=== PATIENT | female | born 1980 | race Caucasian/White ===

== ENCOUNTER 2017-02-04 15:10 | Emergency (ER) | payer MEDICAID ==
--- NOTE | 2017-02-04 17:41 | Emergency Department Record ---
History of Present Illness - General Chief complaint: Lower Extremity Pain Stated complaint: STABING LEG PAIN Time Seen by Provider: 02/04/17 17:41 Source: Patient, RN notes reviewed Mode of Arrival: Ambulatory - History of Present Illness Initial comments: right leg varicose veins sore and aching and no edema of leg and she has had this pain for months and scheduled to have varicose vein surg but insurance would not pay for it, Onset/Timin -: Hour(s) Location: Right, Other History of Same: No Radiation: Distal Severity scale (1-10): 5 Quality: Stabbing Consistency: Intermittent Improves with: Nothing Worsens with: Nothing Associated Symptoms: Denies other symptoms - Related Data Home Medications Medication Instructions Recorded Confirmed Last Taken Cholecalciferol (Vitamin D3) 2,000 unit PO DAILY 02/04/17 02/04/17 Unknown [Vitamin D3] Fluoxetine HCl [Prozac] 20 mg PO DAILY 02/04/17 02/04/17 Unknown Ibuprofen [Ibuprofen] 800 mg PO ASDIR 02/04/17 02/04/17 Unknown Previous Rx's Medication Instructions Recorded Naproxen [Naprosyn] 500 mg PO Q12H #20 tab. 02/04/17 Allergies Allergy/AdvReac Type Severity Reaction Status Date / Time erythromycin base Allergy Severe DIFFICULTY Verified 02/04/17 16:43 BREATHING Penicillins Allergy Severe DIFFICULTY Verified 02/04/17 16:43 BREATHING Sulfa (Sulfonamide Allergy Severe DIFFICULTY Verified 02/04/17 16:43 Antibiotics) BREATHING Travel Screening - Travel/Exposure Within Last 30 Days Have you traveled within the last 30 days?: No Review of Systems Reviewed: No additional complaints except as noted below Constitutional: Reports: As per HPI. Denies: Chills, Fever, Malaise, Night sweats, Weakness, Weight change Eyes: Reports: As per HPI. Denies: Eye discharge, Eye pain, Photophobia, Vision change ENT: Reports: As per HPI. Denies: Congestion, Dental pain, Ear pain, Epistaxis , Hearing loss, Throat pain Respiratory: Reports: As per HPI. Denies: Cough, Dyspnea, Hemoptysis, Stridor, Wheezes Cardiovascular: Reports: As per HPI. Denies: Arrhythmia, Chest pain, Dyspnea on exertion, Edema, Murmurs, Orthopnea, Palpitations, Paroxysmal nocturnal dyspnea, Rheumatic Fever, Syncope Endocrine: Reports: As per HPI. Denies: Fatigue, Heat or cold intolerance, Polydipsia, Polyuria Gastrointestinal: Reports: As per HPI. Denies: Abdominal pain, Constipation, Diarrhea, Hematemesis, Hematochezia, Melena, Nausea, Vomiting Genitourinary: Reports: As per HPI. Denies: Abnormal menses, Discharge, Dyspareunia, Dysuria, Frequency, Hematuria, Incontinence, Retention, Urgency Musculoskeletal: Reports: As per HPI. Denies: Arthralgia, Back pain, Gout, Joint swelling, Myalgia, Neck pain Skin: Reports: As per HPI. Denies: Bruising, Change in color, Change in hair/ nails, Lesions, Pruritus, Rash Neurological: Reports: As per HPI. Denies: Abnormal gait, Confusion, Headache, Numbness, Paresthesias, Seizure, Tingling, Tremors, Vertigo, Weakness Psychiatric: Reports: As per HPI. Denies: Anxiety, Auditory hallucinations, Depression, Homicidal thoughts, Suicidal thoughts, Visual hallucinations Hematological/Lymphatic: Reports: As per HPI. Denies: Anemia, Blood Clots, Easy bleeding, Easy bruising, Swollen glands Past Medical History - SOCIAL HISTORY Smoking Status: Current every day smoker Alcohol Use: Occassional Drug Use: None - RESPIRATORY Hx Respiratory Disorders: No - CARDIOVASCULAR Hx Cardio Disorders: No - NEURO Hx Neuro Disorders: No - GI Hx GI Disorders: No - Hx Genitourinary Disorders: No - ENDOCRINE Hx Endocrine Disorders: No - MUSCULOSKELETAL Hx Musculoskeletal Disorders: No - PSYCH Hx Psych Problems: Yes Hx Anxiety: Yes Hx Depression: Yes - HEMATOLOGY/ONCOLOGY Hx Hematology/Oncology Disorders: No Family Medical History Any Significant Family History?: Yes Family Hx Comment (NOT TO BE USED IN PLACE OF ITEMS BELOW): Mother- blood clots. Grandmother- Thyroid Hx Cancer: Grandparents Hx Diabetes: Father Hx HTN: Father Physical Exam - General General Appearance: Alert, Oriented x3, Cooperative, No acute distress - Head Head exam: Normal inspection - Eye Eye exam: Normal appearance, PERRL Pupils: Normal accommodation - ENT ENT exam: Normal exam, Mucous membranes moist, Normal external ear exam, Normal orophraynx, TM's normal bilaterally Ear exam: Normal external inspection. negative: External canal tenderness Nasal Exam: Normal inspection. negative: Discharge, Sinus tenderness Mouth exam: Normal external inspection, Tongue normal Teeth exam: Normal inspection. negative: Dental caries Throat exam: Normal inspection. negative: Tonsillar erythema, Tonsillar exudate - Neck Neck exam: Normal inspection, Full ROM. negative: Tenderness - Respiratory Respiratory exam: Normal lung sounds bilaterally. negative: Respiratory distress - Cardiovascular Cardiovascular Exam: Regular rate, Normal rhythm, Normal heart sounds - GI/Abdominal GI/Abdominal exam: Soft, Normal bowel sounds. negative: Tenderness - Rectal Rectal exam: Deferred - exam: Deferred - Extremities Extremities exam: Normal inspection, Full ROM, Normal capillary refill. negative: Tenderness - Back Back exam: Reports: Normal inspection, Full ROM. Denies: Muscle spasm, Rash noted, Tenderness - Neurological Neurological exam: Alert, Normal gait, Oriented X3, Reflexes normal - Psychiatric Psychiatric exam: Normal affect, Normal mood - Skin Skin exam: Dry, Intact, Normal color, Warm Course Vital Signs 02/04/17 16:33 Temperature 98.0 F Pulse Rate 95 H Respiratory 18 Rate Blood Pressure 104/62 Pulse Ox 97 Disposition Clinical Impression: Varicose vein of leg, Phlebitis, superficial Upper respiratory infection Qualifiers: URI type: unspecified viral URI Qualified Code(s): J06.9 - Acute upper respiratory infection, unspecified; B97.89 - Other viral agents as the cause of diseases classified elsewhere Disposition: Home, Self-Care Condition: (1) Good Instructions: Varicose Veins (ED) Additional Instructions: follow up with family in 2 to 5 days stop motrin while taking naprosyn Prescriptions: Naproxen [Naprosyn] 500 mg PO Q12H #20 tab.dr Forms: Patient Portal Access Time of Disposition: 17:58
== END 2017-02-04 18:26 | disposition home or self-care (01) ==
LOC: ER 15:10
DX: I83.11 Varicose veins of right lower extremity with inflammation (principal); J06.9 Acute upper respiratory infection, unspecified
CPT/HCPCS: 99282

== ENCOUNTER 2018-09-16 11:03 | Emergency (ER) | payer MEDICAID ==
--- NOTE | 2018-09-16 11:25 | Emergency Department Record ---
History of Present Illness - General Chief Complaint: Numbness Stated Complaint: LEFT ARM NUMB, NAUSEA, WEAK Time Seen by Provider: 09/16/18 11:19 Source: Patient Mode of Arrival: Ambulatory Limitations: No limitations - History of Present Illness Initial Comments: The patient is here due to a complaint of L arm numbness that is intermittent for 3 days. She states the symptoms seem to come and go and last minutes to hours. There is no associated weakness or tingling to the arm. She also denies any visual changes, balance issues, trouble talking or swallowing or confusion. Presently the symptoms are gone. Additionally she has not felt well for a few days and has had mild dizziness off and on. Onset/Timin -: Days(s) Location: Left arm Place: Home Severity: Moderate Quality: Numb Improves With: None Worsens With: None On Anticoagulants: No Associated Symptoms: Headaches, Malaise, Nausea/vomiting Treatments Prior to Arrival: None - Geovanna Coma Scale Eye Response: (4) Open spontaneously Motor Response: (6) Obeys commands Verbal Response: (5) Oriented Geovanna Total: 15 - Related Data Home Medications: Home Medications Medication Instructions Recorded Confirmed Last Taken Phentermine HCl [Adipex-P] 37.5 mg PO DAILY 09/16/18 09/16/18 09/16/18 Allergies/Adverse Reactions: Allergies Allergy/AdvReac Type Severity Reaction Status Date / Time erythromycin base Allergy Severe DIFFICULTY Verified 09/16/18 11:07 BREATHING Penicillins Allergy Severe DIFFICULTY Verified 09/16/18 11:07 BREATHING Sulfa (Sulfonamide Allergy Severe DIFFICULTY Verified 09/16/18 11:07 Antibiotics) BREATHING Travel Screening - Travel/Exposure Within Last 30 Days Have you traveled within the last 30 days?: No - Travel/Exposure Within Last Year Have you traveled outside the [place] in the last year?: No - Additonal Travel Details Have you been exposed to anyone with a communicable illness?: No - Travel Symptoms Symptom Screening: None Review of Systems Constitutional: Denies: Chills, Fever Eyes: Denies: Eye discharge ENT: Denies: Congestion Respiratory: Denies: Cough, Dyspnea Past Medical History - SOCIAL HISTORY Smoking Status: Current every day smoker Alcohol Use: Occasional Drug Use: None - RESPIRATORY Hx Respiratory Disorders: No - CARDIOVASCULAR Hx Cardio Disorders: No - NEURO Hx Neuro Disorders: No - GI Hx GI Disorders: No - Hx Genitourinary Disorders: No - ENDOCRINE Hx Endocrine Disorders: No - MUSCULOSKELETAL Hx Musculoskeletal Disorders: No - PSYCH Hx Psych Problems: Yes Hx Anxiety: Yes Hx Depression: Yes - HEMATOLOGY/ONCOLOGY Hx Hematology/Oncology Disorders: No Family Medical History Any Significant Family History?: Yes Family Hx Comment (NOT TO BE USED IN PLACE OF ITEMS BELOW): Mother- blood clots. Grandmother- Thyroid Hx Cancer: Grandparents Hx Diabetes: Father Hx HTN: Father Physical Exam - General General Appearance: Alert, Oriented x3, Cooperative, No acute distress - Head Head exam: Atraumatic, Normocephalic, Normal inspection - Eye Eye exam: Normal appearance, PERRL, EOMI - ENT Throat exam: Normal inspection. negative: Tonsillar erythema, Tonsillar exudate - Neck Neck exam: Normal inspection, Full ROM, Other (Neg for carotid bruits bilaterally.). negative: Tenderness - Respiratory Respiratory exam: Normal lung sounds bilaterally. negative: Respiratory distress - Cardiovascular Cardiovascular Exam: Regular rate, Normal rhythm, Normal heart sounds. negative : Diastolic murmur, Systolic murmur - GI/Abdominal GI/Abdominal exam: Soft, Normal bowel sounds. negative: Tenderness - Extremities Extremities exam: Normal inspection, Full ROM, Normal capillary refill, Other ( radial pulses 2+ and equal bilaterally.). negative: Tenderness - Neurological Neurological exam: Alert, CN II-XII intact, Normal gait, Oriented X3, Reflexes normal, Other (Neg Drift and Rhomberg exams.). negative: Abnormal gait, Altered , Motor sensory deficit - Psychiatric Psychiatric exam: negative: Anxious Course Vital Signs 09/16/18 11:10 Temperature 97.5 F L Pulse Rate 110 H Respiratory 16 Rate Blood Pressure 117/78 Pulse Ox 99 - Reevaluation(s) Reevaluation #1: The patient is presently doing very well. She is texting using both hands at this time with no difficulty. 09/16/18 12:27 Reevaluation #2: The patient is doing very well at this time. She is asymptomatic and denies any new symptoms. We did just complete carotid doppler studies and are awaiting the results. 09/16/18 13:49 Reevaluation #3: The patient is doing very well at this time. She presently has no arm numbness or weakness. I did discuss the US results and the need for further evaluation with her PCP. The patient is to see her PCP for recheck and to possibly have a cardiac echo ordered and also to have the thyroid gland evaluated further. 09/16/18 14:54 Medical Decision Making - Data Complexity MDM Data: Labs Ordered and/or Reviewed, X-Ray Ordered and/or Reviewed, EKG Ordered and/or Reviewed - Lab Data Result diagrams: 09/16/18 11:40 09/16/18 11:40 - EKG Data -: EKG Interpreted by Me EKG: No Acute Changes, Normal EKG - Radiology Data Radiology results: Report reviewed (Head CT: Neg. Carotid US: No significant stenosis or abnormality. Incidental finding of thyroid nodule.) Disposition Disposition: Discharge Clinical Impression: Arm paresthesia, left Disposition: Home, Self-Care Condition: (2) Stable Instructions: Paresthesia (ED) Additional Instructions: Please see your family doctor for further evaluation of the intermittent L arm symptoms. Please also discuss your thyroid nodule with your PCP also and have an outpatient US ordered. Please return to the ER for any worsening symptoms, any arm or leg weakness, visual changes or speech problems. Forms: Patient Portal Access Time of Disposition: 14:58 Quality - Quality Measures Quality Measures: N/A - Blood Pressure Screening View Details: Yes Does Patient Have Any of the Following: No Blood Pressure Classification: Pre-Hypertensive BP Reading Systolic Measurement: 120 Diastolic Measurement: 80 Screening for High Blood Pressure: < Pre-Hypertensive BP, F/U Documented > [ G8950] Pre-Hypertensive Follow-up Interventions: Referral to alternative/primary care provider.
[2018-09-16 11:49] LABS: BASO % 0.2 % (0-6); EOS % 0.8 % (0-6); GRAN % 78.7 % (47-80); HEMATOCRIT 46.7 % (35.0-47.0); HEMOGLOBIN 15.4 gm/dl (11.6-16.0); LYMPH % 12.2 % (16-45); MEAN CELL VOLUME 92.5 fl (81-97); MEAN CORPUSCULAR HEMOGLOBIN 30.5 pg (27-33); MEAN PLATELET VOLUME 10.6 fl (7.4-10.4); MONO % 8.1 % (0-9); PLATELET COUNT 223 K/uL (130-400); RED BLOOD COUNT 5.05 M/uL (3.80-5.40); RED CELL DISTRIBUTION WIDTH 13.3 % (11.5-14.5); WHITE BLOOD COUNT W/O DIFF 10.3 K/uL (4.2-12.2)
[2018-09-16 12:00] LABS: BLOOD UREA NITROGEN 8 mg/dL (6-20); CREATININE 0.8 mg/dL (0.5-0.9); EST GLOMERULAR FILTRATION RATE > 60 mL/min
[2018-09-16 12:01] LABS: TOTAL PROTEIN 6.6 g/dL (6.6-8.7)
[2018-09-16 12:03] LABS: GLUCOSE,RANDOM 94 mg/dL (74-109)
[2018-09-16 12:05] LABS: ALT/SGPT 14 U/L (<33); AST/SGOT 16 U/L (10.0-35.0)
[2018-09-16 12:06] LABS: ALB/GLOB RATIO 1.4 (1.1-1.8); ALBUMIN 3.9 g/dL (4.0-5.0); ALKALINE PHOSPHATASE 93 U/L (35-104)
--- NOTE | 2018-09-18 08:01 | CT SCAN REPORT ---
EXAM: CT SCAN HEAD WO CONTRAST HISTORY: HEADACHE, LEFT ARM NUMBNESS, FATIGUE AND DIZZINESS FOR TWO DAYS. TECHNIQUE: Noncontrast CT of the brain. COMPARISON: Noncontrast CT head, 01/08/2012. FINDINGS: No midline shift, mass effect, or abnormal intra- or extra-axial fluid collection. No cerebral edema, focal mass, or intracranial hemorrhage detected. Delgadillo-white interface appears preserved. Ventricle sizes are within normal limits. The basal cisterns appear non-effaced. No evidence of displaced calvarial fracture on bone window images. Minimal opacification of the right anterior ethmoid air cells. Remainder of the visualized paranasal sinuses and mastoid air cells are clear. IMPRESSION: 1. NO ACUTE INTRACRANIAL FINDINGS. 2. PARTIAL OPACIFICATION OF THE RIGHT ANTERIOR ETHMOID AIR CELLS. JOB NUMBER: [id number] [facility]
--- NOTE | 2018-09-18 09:38 | US CAROTID DOPPLER REPORT ---
DATE: 09/16/2018. EXAM: BILATERAL CAROTID DOPPLER ARTERIAL ULTRASOUND. HISTORY: DIZZINESS, HEADACHE, AND LEFT UPPER EXTREMITY NUMBNESS. TECHNIQUE: Routine bilateral carotid Doppler arterial ultrasound. COMPARISON: None. FINDINGS: Minimal focal partially calcified plaque near the origin of the right common carotid artery. 3 Vessel Right Peak Systolic/ End Diastolic Velocities Left Peak Systolic/ End Diastolic Velocities Proximal Common Carotid Artery 81.4 cm/s /24.5 cm/s 82.7 cm/s /24.5 cm/s Mid Common Carotid Artery 59.4 cm/s /21.9 cm/s 89.2 cm/s /29.7 cm/s Distal Common Carotid Artery 75 cm/s /28.4 cm/s 73.7 cm/s /18.0 cm/s Proximal Internal Carotid Artery 62 cm/s /32 cm/s 97.8 cm/s /29.6 cm/s Mid Internal Carotid Artery 72.4 cm/s /36.1 cm/s 86.4 cm/s /39.3 cm/s Distal Internal Carotid Artery 66.1 cm/s /32.3 cm/s 60.6 cm/s /16.6 cm/s Carotid Bulb 72.4 cm/s /24.5 cm/s 66.6 cm/s /21.3 cm/s Proximal External Carotid Artery 72.4 cm/s /15.4 cm/s 69.8 cm/s /18.1 cm/s d d d Right Flow Left Flow Vertebral Artery Antegrade Antegrade Right vertebral artery peak systolic 35.5 cm/s. Left vertebral artery peak systolic 44.9 cm/s. Right internal carotid artery to common carotid artery ratio 0.9. Left internal carotid artery to common carotid artery ratio 1.1. IMPRESSION: 1. MINIMAL FOCAL ARTERIAL PLAQUE AT THE ORIGIN OF THE RIGHT COMMON CAROTID ARTERY. OTHERWISE NO EVIDENCE OF INTERNAL CAROTID STENOSIS. 2. NOT DESCRIBED ABOVE, THERE IS AN INCIDENTALLY NOTED LEFT LOBE THYROID NODULE MEASURING UP TO 1.8 CM. THIS COULD BE FURTHER ASSESSED WITH DEDICATED THYROID ULTRASOUND ON A NON-EMERGENT BASIS. JOB NUMBER: [id number] [facility]
== END 2018-09-16 15:12 | disposition home or self-care (01) ==
LOC: ER 11:03
DX: R20.2 Paresthesia of skin (principal); R11.2 Nausea with vomiting, unspecified; R51 Headache; R42 Dizziness and giddiness; R53.1 Weakness; F17.210 Nicotine dependence, cigarettes, uncomplicated
CPT/HCPCS: 70450; 80053; 84443; 85025; 93005; 93010; 93880; 99284

== ENCOUNTER 2019-04-22 21:09 | Emergency (ER) | payer MEDICAID ==
--- NOTE | 2019-04-22 21:32 | Emergency Department Record ---
History of Present Illness - General Chief complaint: Lower Extremity Pain Stated complaint: POST SURGICAL ISSUE Time Seen by Provider: 04/22/19 21:24 Source: Patient Mode of Arrival: Ambulatory Limitations: No limitations - History of Present Illness Initial comments: 39 yo female presents to ED for evaluation of pain to the right anterior-medial aspect of the right thigh as well as the popliteal region of mindi right lower extremity following a vein excision surgery 1 week ago. Patient reports bruising to the area of pain at the anterior-medial thigh, reports small area of bleeding following her surgery to the affected area. Patient denies history of DVT/PE, denies use of anticoagulation medications. Patient however is concerned about DVT given her pain symptoms with increased today. Patient denies calf pain or lower extremity edema. MD Complaint: Extremity pain Onset/Timin -: Days(s) Location: Right, Lower Leg, Thigh History of Same: No Radiation: None Quality: Aching Consistency: Constant Improves with: Rest Worsens with: Palpation, Walking Associated Symptoms: Denies other symptoms - Related Data Allergies Allergy/AdvReac Type Severity Reaction Status Date / Time erythromycin base Allergy Severe DIFFICULTY Verified 09/16/18 11:07 BREATHING Penicillins Allergy Severe DIFFICULTY Verified 09/16/18 11:07 BREATHING Sulfa (Sulfonamide Allergy Severe DIFFICULTY Verified 09/16/18 11:07 Antibiotics) BREATHING Review of Systems Constitutional: Denies: Chills, Fever, Malaise Eyes: Denies: Eye discharge, Eye pain ENT: Denies: Congestion, Ear pain, Epistaxis Respiratory: Denies: Cough, Dyspnea Cardiovascular: Denies: Chest pain, Dyspnea on exertion Endocrine: Denies: Fatigue, Heat or cold intolerance Gastrointestinal: Denies: Abdominal pain, Nausea, Vomiting Genitourinary: Denies: Incontinence, Retention Musculoskeletal: Reports: Myalgia. Denies: Arthralgia, Back pain Skin: Reports: Bruising. Denies: Change in color Neurological: Denies: Abnormal gait, Confusion, Headache, Seizure Psychiatric: Denies: Anxiety Hematological/Lymphatic: Denies: Anemia, Blood Clots Past Medical History - SOCIAL HISTORY Smoking Status: Current every day smoker Drug Use: None - RESPIRATORY Hx Respiratory Disorders: No - CARDIOVASCULAR Hx Cardio Disorders: No - NEURO Hx Neuro Disorders: No - GI Hx GI Disorders: No - Hx Genitourinary Disorders: No - ENDOCRINE Hx Endocrine Disorders: No - MUSCULOSKELETAL Hx Musculoskeletal Disorders: No - PSYCH Hx Psych Problems: Yes Hx Anxiety: Yes Hx Depression: Yes - HEMATOLOGY/ONCOLOGY Hx Hematology/Oncology Disorders: No Family Medical History Family Hx Comment (NOT TO BE USED IN PLACE OF ITEMS BELOW): Mother- blood clots. Grandmother- Thyroid Hx Cancer: Grandparents Hx Diabetes: Father Hx HTN: Father Physical Exam - General General Appearance: Alert, Oriented x3, Cooperative, Mild distress Limitations: No limitations - Head Head exam: Atraumatic, Normocephalic, Normal inspection Head exam detail: negative: Abrasion, Contusion, Arzo's sign, General tenderness, Hematoma, Laceration - Eye Eye exam: Normal appearance. negative: Conjunctival injection, Periorbital swelling, Periorbital tenderness, Scleral icterus - ENT Ear exam: negative: Auricular hematoma, Auricular trauma Nasal Exam: negative: Active bleeding, Discharge, Dried blood, Foreign body Mouth exam: negative: Drooling, Laceration, Muffled voice, Tongue elevation - Neck Neck exam: Normal inspection. negative: Meningismus, Tenderness - Respiratory Respiratory exam: Normal lung sounds bilaterally. negative: Rales, Respiratory distress, Rhonchi, Stridor - Cardiovascular Cardiovascular Exam: Regular rate, Normal rhythm, Normal heart sounds Peripheral Pulses: 3+: Dorsalis Pedis (R) - GI/Abdominal GI/Abdominal exam: Soft. negative: Rebound, Rigid, Tenderness - Rectal Rectal exam: Deferred - exam: Deferred - Extremities Extremities exam: Tenderness, Other (TTP to the politeal region on examination, area of ecchymosis and small (1.5 cm in daimeter) hematoma to the anterior- medial thigh. No edema present, strong DPP, compartments of the lower extremity are soft on examination.). negative: Calf tenderness, Pedal edema - Back Back exam: Denies: CVA tenderness (R), CVA tenderness (L) - Neurological Neurological exam: Alert, Normal gait, Oriented X3 - Psychiatric Psychiatric exam: Normal affect, Normal mood - Skin Skin exam: Normal color. negative: Abrasion Type of lesion: negative: abrasion Course Vital Signs 04/22/19 21:19 Temperature 98.9 F Pulse Rate [ 106 H Left] Respiratory 16 Rate Blood Pressure 108/90 [Left] Pulse Ox 99 - Reevaluation(s) Reevaluation #1: 04/22/19 21:51 D-Dimer: 0.23 Patient was updated on her result, negative for DVT. Patient appears stable for discharge at this time. Disposition Disposition: Discharge Clinical Impression: Post-operative pain Disposition: Home, Self-Care Condition: (2) Stable Instructions: Pain Management After Surgery (GEN) Additional Instructions: Return to ED if your symptoms worsen or if you have any concerns. Continue Motrin 800 as directed. Follow-up with your surgeon in 3-5 days as directed. Forms: Patient Portal Access Time of Disposition: 21:54 Quality - Quality Measures Quality Measures: N/A - Blood Pressure Screening Does Patient Have Any of the Following: No Blood Pressure Classification: Hypertensive Reading Systolic Measurement: 108 Diastolic Measurement: 90 Screening for High Blood Pressure: < First Hypertensive BP, F/U Documented > [G8950] First Hypertensive Follow-up Interventions: Referral to alternative/primary care provider.
== END 2019-04-22 22:03 | disposition home or self-care (01) ==
LOC: ER 21:09
DX: G89.18 Other acute postprocedural pain (principal); M79.651 Pain in right thigh; F17.210 Nicotine dependence, cigarettes, uncomplicated
CPT/HCPCS: 85379; 99283